=== PATIENT | male | born 1940 | race Caucasian/White ===

== ENCOUNTER → 2024-03-17 | Day surgery (SDC) | payer OTHER ==
[~2024-03-17] VITALS: Ht 180.3 cm; Wt 86.6 kg
[~2024-03-17] MED LIST: ASCO500T11 PO; ASPI-543 PO; CHOL20007 PO; CYAN500T39 PO; DORZ2SOL18 EACHEYE; DexAMETHasone SOD PHOS 10MG/1ML VIAL INJ ONE; ETOMIDATE (2MG/ML) 20ML VIAL IV ONE; FERR-7 PO; KETAMINE 50mg/ML 1ml syringe ONE; LIDOCAINE 1% INJ PF 5ML AMP ONE; LIDOCAINE HCL 2% TOP JELLY 5ML TOP ONE; LOSA-534 PO; MAGN1CAP PO; MEPERIDINE HCL (25 MG/ML) 1ML VIAL ONE; MIDAZOLAM HCL 2MG/2ML 2ml VIAL (1mg/ml) ONE; MULT-1018 PO; OMEG120015 PO; ONDANSETRON HCL 4 MG/2 ML VIAL ONE; ROCURONIUM 10MG/ML 10ML VIAL IV ONE; ROSU20TA14 PO; SODIUM CHLORIDE LOCK 30 ML ONE; TRAM100C PO; ceFAZolin 2 GM/D5W100ml 100 ML IV ONE; fentaNYL CITRATE 0 ML ONE; fentaNYL CITRATE 100 MCG/2 ML VL ONE
[2024-03-17 09:09] VITALS: BP 153/85; PULSE 80; RESP 20; TEMP 97.6; O2SAT 97
[2024-03-17] MEDS: HEPARIN SODIUM (PORCINE) 5000 UNITS/ML 1ML VIAL ONE (10:30)
== END | disposition home or self-care (01) ==
LOC: SUR 08:53
PROVIDERS: ATTEND Surgery Vascular Surgery
DX: I65.22 Occlusion and stenosis of left carotid artery (principal); Z53.8 Procedure and treatment not carried out for other reasons; Z98.890 Other specified postprocedural states
CPT/HCPCS: 86850; 86900; 86901; J1644; J1100; J2250; J2405

== ENCOUNTER 2024-04-15 06:33 | Day surgery (SDC) | payer OTHER ==
[~2024-04-15] VITALS: Ht 180.3 cm; Wt 90.7 kg
[~2024-04-15 06:33] MED LIST changes: -DexAMETHasone SOD PHOS 10MG/1ML VIAL INJ ONE; -ETOMIDATE (2MG/ML) 20ML VIAL IV ONE; -KETAMINE 50mg/ML 1ml syringe ONE; -LIDOCAINE 1% INJ PF 5ML AMP ONE; -LIDOCAINE HCL 2% TOP JELLY 5ML TOP ONE; -MEPERIDINE HCL (25 MG/ML) 1ML VIAL ONE; -MIDAZOLAM HCL 2MG/2ML 2ml VIAL (1mg/ml) ONE; -ONDANSETRON HCL 4 MG/2 ML VIAL ONE; -ROCURONIUM 10MG/ML 10ML VIAL IV ONE; -SODIUM CHLORIDE LOCK 30 ML ONE; -ceFAZolin 2 GM/D5W100ml 100 ML IV ONE; -fentaNYL CITRATE 0 ML ONE; -fentaNYL CITRATE 100 MCG/2 ML VL ONE
[2024-04-15] MEDS ORDERED: IODIXANOL 320MG/ML 100ML BTL IV ONE ×2 (07:38→08:02)
[2024-04-15] MEDS ORDERED: HEPARIN IN NS 1000Units/500mL 1,500 ML ONE (07:38)
[2024-04-15] MEDS ORDERED: LIDOCAINE 2%HCL (LOCAL ANESTH.) INJ 20ML MDV ONE (07:42)
[2024-04-15] MEDS ORDERED: ATROPINE SULF 1 MG/10ml SYR ONE (07:46)
[2024-04-15] MEDS ORDERED: EPINEPHrine HCL 1 MG/10 ML SYRG ONE (07:46)
[2024-04-15] MEDS ORDERED: GLYCOPYRROLATE 0.2 MG/ML 1ML VIAL ONE (07:46)
[2024-04-15] MEDS ORDERED: HEPARIN SODIUM (PORCINE) 5000 UNITS/ML 1ML VIAL ONE (08:15)
[2024-04-15] MEDS ORDERED: PHENYLEPHRINE HCL 10 MG/ML VL ONE (08:19)
[2024-04-15] MEDS ORDERED: fentaNYL CITRATE 100 MCG/2 ML VL ONE (09:14)
--- NOTE | 2024-04-15 09:19 | POSTOP ---
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
[2024-04-15] MEDS ORDERED: traMADol HCL 50 MG TAB PO ONE (10:30)
--- NOTE | 2024-04-15 11:31 | DVHOP2 ---
Operative Report - 2 Report Details Date: 04/15/24 Preop Diagnosis: recurrent left carotid artery stenosis Postop Diagnosis: same, bovine arch Surgeon: Garcia Hyde MD Anesthesiologist: none Anesthesia: Local Consent: The patient was informed of the risks and benefits of the procedure. These include but are not limited to complications of anesthesia, postoperative infection, incomplete relief of symptoms, recurrence of symptoms, damage to bl ood vessels, nerves and tendons, deep venous thrombosis, pulmonary embolism and possible need for repeat surgery in the future. Estimated Blood Loss: 50 ml Name of Procedure Performed Aortogram, and selective carotid cannulation Procedure Details Procedure Details: Patient was identified in the preop holding area. He was consented and preopped by myself. He was then brought back to the laboratory phlebotomist placed in the laboratory phlebotomist t able in a supine position after time-out the right and left groins were prepped and draped normal surgical fashion. 1% lidocaine was injected over top of the right common femoral artery. Right common femoral artery was then cannulated with a four Arabic micropuncture needle. A arteriogram was performed of the right common femoral artery was normal caliber with no significant disease. A wire was then passed up into the aortic arch. With multiple catheters the left common carotid artery was attempted to be cannulated. It was unsuccessful. An arch angiogram was performed which demonstrated this was a bovine arch. Of the wire and catheter were easily passed up into the right common carotid artery but after multiple attempts with multiple different wires and catheters of the left common carotid artery was not able to be cannulated. At this point in time the procedure was reported and catheters and wires were removed and pain Arabic Angio-Seal was then deployed. Hemostasis was obtained. Patient was taken to recovery in his stable condition. Patient and family were made aware and follow up findings. Condition Stable Disposition Home GARCIA HYDE Jr., MD Apr 15, 2024 11:31
== END 2024-04-15 11:31 | disposition home or self-care (01) ==
LOC: CATH 06:33
PROVIDERS: ATTEND Surgery Vascular Surgery
DX: I65.22 Occlusion and stenosis of left carotid artery (principal); Z98.890 Other specified postprocedural states
CPT/HCPCS: 36222; C1760; C1769; C1884; C1887; C1894; J1644; J2371; J3010; J7030; Q9967; 99152